=== PATIENT | male | born 1965 | race Caucasian/White ===

== ENCOUNTER 2016-07-06 14:36 | Inpatient (IN) | payer BC ==
[2016-07-06] MEDS ORDERED: SODIUM CHLORIDE 0.9% 1,000 ML IV STA (15:10)
[2016-07-06] MEDS ORDERED: IPRATROPIUM-ALBUTEROL 3 ML NEB INHALATION STA (15:10)
--- NOTE | 2016-07-06 15:25 | ED ---
SOB HPI - General Chief Complaint: Shortness of Breath Stated Complaint: Sent by PCP Abn EKG Time Seen by Provider: 07/06/16 14:56 Source: patient, RN notes reviewed Mode of arrival: wheelchair Limitations: no limitations - History of Present Illness Initial Comments: This is a 50-year-old male with a history of PVCs but no other medical history who does admit that he works out a lot and georgette up to 3 miles a day and has been very healthy he does not smoke or do illegal drugs who sent over from his doctor's office today because he's been feeling fatigued and short of breath for the past several days. She is about 5 days ago he started not feeling well he states he almost passed out several times over last 3 or 4 days he's had fevers chills sweats he did have a global headache 3 days ago which is since gotten better he has some sinus congestion some rhinorrhea which started about 5 days ago. He denies any overt cough or phlegm production. No chest pain no peripheral edema he denies any sore throat or earaches. He denies any other complaints at this time. EKG done in his doctor's office showed bigeminy with apparent baseline changes. He was sent here for further evaluation. MD Complaint: shortness of breath - Related Data Home Medications Medication Instructions Recorded Confirmed Aspirin EC [Ecotrin] 325 mg PO DAILY 07/06/16 07/06/16 Multivitamins, Thera [Multivitamin 1 tab PO DAILY 07/06/16 07/06/16 (formulary)] Allergies Allergy/AdvReac Type Severity Reaction Status Date / Time No Known Allergies Allergy Verified 07/06/16 15:54 Review of Systems ROS Statement: Those systems with pertinent positive or pertinent negative responses have been documented in the HPI. ROS Other: All systems not noted in ROS Statement are negative. Past Medical History Past Medical History: No Reported History History of Any Multi-Drug Resistant Organisms: None Reported Past Surgical History: Hernia Repair, Orthopedic Surgery Past Psychological History: No Psychological Hx Reported Smoking Status: Never smoker Past Alcohol Use History: Occasional Past Drug Use History: None Reported General Exam - General Exam Comments Initial Comments: This is a well-developed well-nourished awake alert oriented x 3 male Limitations: no limitations General appearance: alert, in no apparent distress Head exam: Present: atraumatic, normocephalic, normal inspection Eye exam: Present: normal appearance, PERRL, EOMI. Absent: scleral icterus, conjunctival injection, periorbital swelling ENT exam: Present: mucous membranes moist, TM's normal bilaterally, other ( Boggy nasal mucosa) Neck exam: Present: normal inspection. Absent: tenderness, meningismus, lymphadenopathy Respiratory exam: Present: decreased breath sounds. Absent: respiratory distress, wheezes, rales, rhonchi, stridor Cardiovascular Exam: Present: normal rhythm, bradycardia, normal heart sounds, other (Occasional extrasystole). Absent: systolic murmur, diastolic murmur, rubs, gallop, clicks GI/Abdominal exam: Present: soft, normal bowel sounds. Absent: distended, tenderness, guarding, rebound, rigid Extremities exam: Present: normal inspection, full ROM, normal capillary refill. Absent: tenderness, pedal edema, joint swelling, calf tenderness Back exam: Present: normal inspection Neurological exam: Present: alert, oriented X3, CN II-XII intact Psychiatric exam: Present: normal affect, normal mood Skin exam: Present: warm, dry, intact, normal color. Absent: rash Course Vital Signs 07/06/16 07/06/16 07/06/16 14:47 15:23 15:30 Temperature 97.4 F L Pulse Rate 59 L 58 L Pulse Rate [ 76 Bus Operator ] Respiratory 18 Rate Blood Pressure 145/104 O2 Sat by Pulse 98 Oximetry 07/06/16 07/06/16 07/06/16 15:42 15:51 17:00 Temperature Pulse Rate 60 76 59 L Pulse Rate [ Bus Operator ] Respiratory 18 18 Rate Blood Pressure 161/101 161/101 O2 Sat by Pulse 96 98 Oximetry Medical Decision Making - Medical Decision Making Patient is feeling somewhat better with respect to his breathing however he still having palpitations and intermittent episodes of frequent PVCs. I did discuss case with him and with Dr. Wolf patient be admitted with cardiology consultation. - Lab Data Result diagrams: 07/06/16 15:17 07/06/16 15: Lab Results 07/06/16 07/06/16 07/06/16 Range/Units 15:17 15:17 15:17 WBC 6.1 (3.8-10.6) k/uL RBC 4.97 (4.30-5.90) m/uL Hgb 16.3 (13.0-17.5) gm/dL Hct 46.7 (39.0-53.0) % MCV 93.9 (80.0-100.0) fL MCH 32.7 (25.0-35.0) pg MCHC 34.8 (31.0-37.0) g/dL RDW 13.0 (11.5-15.5) % Plt Count 256 (150-450) k/uL Neutrophils % 52 % Lymphocytes % 34 % Monocytes % 8 % Eosinophils % 3 % Basophils % 1 % Neutrophils # 3.2 (1.3-7.7) k/uL Lymphocytes # 2.1 (1.0-4.8) k/uL Monocytes # 0.5 (0-1.0) k/uL Eosinophils # 0.2 (0-0.7) k/uL Basophils # 0.0 (0-0.2) k/uL PT (9.0-12.0) sec INR (<1.1) APTT (22.0-30.0) sec D-Dimer (<0.60) mg/L FEU Sodium 142 (137-145) mmol/L Potassium 4.2 (3.5-5.1) mmol/L Chloride 106 (98-107) mmol/L Carbon Dioxide 24 (22-30) mmol/L Anion Gap 12 mmol/L BUN 19 (9-20) mg/dL Creatinine 0.92 (0.66-1.25) mg/dL Est GFR (MDRD) Af Amer >60 (>60 ml/min/1.73 sqM) Est GFR (MDRD) Non-Af >60 (>60 ml/min/1.73 sqM) Glucose 102 H (74-99) mg/dL Calcium 9.4 (8.4-10.2) mg/dL Magnesium 2.0 (1.6-2.3) mg/dL Total Bilirubin 0.6 (0.2-1.3) mg/dL AST 21 (17-59) U/L ALT 21 (21-72) U/L Alkaline Phosphatase 73 (38-126) U/L Total Creatine Kinase 34 L (55-170) U/L CK-MB (CK-2) <0.2 (0.0-2.4) ng/mL CK-MB (CK-2) Rel Index Troponin I <0.012 (0.000-0.034) ng/mL NT-Pro-B Natriuret Pep pg/mL Total Protein 7.6 (6.3-8.2) g/dL Albumin 4.6 (3.5-5.0) g/dL TSH 0.824 (0.465-4.680) mIU/L Influenza Type A RNA (Not Detectd) Influenza Type B (PCR) (Not Detectd) 07/06/16 07/06/16 07/06/16 Range/Units 15:17 15:17 15:17 WBC (3.8-10.6) k/uL RBC (4.30-5.90) m/uL Hgb (13.0-17.5) gm/dL Hct (39.0-53.0) % MCV (80.0-100.0) fL MCH (25.0-35.0) pg MCHC (31.0-37.0) g/dL RDW (11.5-15.5) % Plt Count (150-450) k/uL Neutrophils % % Lymphocytes % % Monocytes % % Eosinophils % % Basophils % % Neutrophils # (1.3-7.7) k/uL Lymphocytes # (1.0-4.8) k/uL Monocytes # (0-1.0) k/uL Eosinophils # (0-0.7) k/uL Basophils # (0-0.2) k/uL PT 9.9 (9.0-12.0) sec INR 1.0 (<1.1) APTT 23.8 (22.0-30.0) sec D-Dimer 0.36 (<0.60) mg/L FEU Sodium (137-145) mmol/L Potassium (3.5-5.1) mmol/L Chloride (98-107) mmol/L Carbon Dioxide (22-30) mmol/L Anion Gap mmol/L BUN (9-20) mg/dL Creatinine (0.66-1.25) mg/dL Est GFR (MDRD) Af Amer (>60 ml/min/1.73 sqM) Est GFR (MDRD) Non-Af (>60 ml/min/1.73 sqM) Glucose (74-99) mg/dL Calcium (8.4-10.2) mg/dL Magnesium (1.6-2.3) mg/dL Total Bilirubin (0.2-1.3) mg/dL AST (17-59) U/L ALT (21-72) U/L Alkaline Phosphatase (38-126) U/L Total Creatine Kinase (55-170) U/L CK-MB (CK-2) (0.0-2.4) ng/mL CK-MB (CK-2) Rel Index Troponin I (0.000-0.034) ng/mL NT-Pro-B Natriuret Pep 24 pg/mL Total Protein (6.3-8.2) g/dL Albumin (3.5-5.0) g/dL TSH (0.465-4.680) mIU/L Influenza Type A RNA Not Detected (Not Detectd) Influenza Type B (PCR) Not Detected (Not Detectd) - EKG Data -: EKG Interpreted by [place] EKG shows normal: sinus rhythm (Sinus rhythm with a rate of 59 bradycardia with occasional unifocal PVC. Interval 132 QRS duration 94 QT/QTC of 388/384 and did view the copy of the EKG submitted from the office today which did show episodes of bigeminy this is changed from an EKG dated 12/17/12 which showed a normal sinus rhythm. At this time the baseline does appear to be similar to the 2013 EKG.) - Radiology Data Radiology results: report reviewed, image reviewed Disposition Clinical Impression: PVCs (premature ventricular contractions), Bronchospasm, Palpitations Disposition: ADMITTED IP TO THIS [facility] Condition: Stable Decision Time: 17:45
[2016-07-06 15:40] LABS: Basophils % (A) 1 %; CH 33.5; CHCM 35.8; Eosinophils # (A) 0.2 k/uL (0-0.7); Eosinophils % (A) 3 %; HCT 46.7 % (39.0-53.0); HDW 2.61; HGB 16.3 gm/dL (13.0-17.5); Luc # (Auto) 0.23; Luc % (Auto) 4; Lymphocytes # (A) 2.1 k/uL (1.0-4.8); Lymphocytes % (A) 34 %; MCH 32.7 pg (25.0-35.0); MCHC 34.8 g/dL (31.0-37.0); MCV 93.9 fL (80.0-100.0); Mean Platelet Volume 6.9; Monocytes # (A) 0.5 k/uL (0-1.0); Monocytes % (A) 8 %; Neutrophils # (A) 3.2 k/uL (1.3-7.7); Neutrophils % (A) 52 %; RBC 4.97 m/uL (4.30-5.90); WBC 6.1 k/uL (3.8-10.6); WBC (Perox) 5.89
[2016-07-06 15:54] LABS: ALT 21 U/L (21-72); AST 21 U/L (17-59); Alkaline Phosphatase 73 U/L (38-126); Anion Gap 12 mmol/L; Blood Urea Nitrogen 19 mg/dL (9-20); Calcium 9.4 mg/dL (8.4-10.2); Carbon Dioxide 24 mmol/L (22-30); Chloride 106 mmol/L (98-107); Glucose 102 mg/dL (74-99); Non-African American GFR(MDRD) >60 (>60 ml/min/1.73 sqM); Potassium 4.2 mmol/L (3.5-5.1); Sodium 142 mmol/L (137-145); Total Bilirubin 0.6 mg/dL (0.2-1.3); Total Protein 7.6 g/dL (6.3-8.2)
[2016-07-06 15:57] LABS: Partial Thromboplastin Time 23.8 sec (22.0-30.0); Prothrombin Time 9.9 sec (9.0-12.0)
[2016-07-06 16:02] LABS: Creatine Kinase 34 U/L (55-170)
--- NOTE | 2016-07-06 16:13 | XR ---
EXAMINATION TYPE: XR chest 2V DATE OF EXAM: 07/06/2016 4:06 PM COMPARISON: NONE HISTORY: Shortness of breath TECHNIQUE: Frontal and lateral views of the chest are obtained. FINDINGS: Scattered senescent parenchymal changes noted. Hyperinflation compatible with COPD. No evidence for infiltrate. No evidence for atelectasis. Heart size is stable. Mediastinal structures are stable and grossly unremarkable. No evidence for hilar prominence. Degenerative changes dorsal spine. IMPRESSION: 1. No evidence for acute pulmonary disease.
[2016-07-06 16:14] LABS: Creatine Kinase MB <0.2 ng/mL (0.0-2.4); Troponin I <0.012 ng/mL (0.000-0.034)
[2016-07-06] MEDS ORDERED: NALOXONE 0.4 MG/ML 1 ML VIAL IV PRN (18:27)
[2016-07-06] MEDS ORDERED: SODIUM CHLORIDE 0.9% 1,000 ML IV SCH (18:30)
[2016-07-07] MEDS ORDERED: ASPIRIN 325 MG TAB PO SCH (09:00)
[2016-07-07 09:06] VITALS: TEMP 97.7
--- NOTE | 2016-07-07 11:22 | P.CRDCN ---
History of Present Illness Consult date: 07/07/16 Requesting physician: Jose Luis Wolf Reason for Consult (text): PVC's Chief complaint: Fatigue and exertional shortness of breath History of present illness: This is a 50-year-old gentleman with no prior documented history of hypertension, no diabetes, no hyperlipidemia, nonsmoker, no family history of premature coronary artery disease, drinks 2 glasses of wine per day, he presents to the hospital with symptoms of fatigue and associated exertional shortness of breath. According to the patient, he went to see his primary care doctor because he has not been feeling well for the past 5 days or so. He has noticed some fever and chills with associated headache and sinus congestion, and thought he may require any antibiotic. Patient also states that for the past week or more he has noticed himself to be extremely tired, and states that with exertion he has been getting mildly short of breath. An EKG was performed in his doctor's office which revealed sinus rhythm with PVCs, and patient was then instructed to come to the emergency room for further evaluation. According to the patient, he does feel occasional palpitations in the chest and has had episodes recently where he feels like he may pass out. He drinks one and a half cups of coffee per day, works out regularly. He also states that he had a stress test approximately 4 years ago at which time he was also noted to have PVCs, he states that he reached his target and apparently the PVCs subsided at that time. EKG on admission shows a normal sinus rhythm, sinus bradycardia with occasional PVC. Chest x-ray did not reveal any evidence for acute pulmonary disease. CBC normal. D-dimer normal. Potassium 4.2. Magnesium 2.0. Troponins negative 3. Influenza a and B are negative. TSH normal. Past Medical History Past Medical History: Cancer, Osteoarthritis (OA), Skin Disorder Additional Past Medical History / Comment(s): CONTROLS CHOLESTEROL BY DIET, PVC' S, HAD STRESS TEST IN 2012,SQUAMOUS CELL SKIN CANCER RT ARM 2009, RECENT DENTAL WORK WAS GIVEN ABX PRIOR TO. History of Any Multi-Drug Resistant Organisms: None Reported Past Surgical History: Hernia Repair, Orthopedic Surgery Additional Past Surgical History / Comment(s): UMBILICAL HERNIA REPAIR, COLONOSCOPY, NASAL SX (CARTILAGE DEFORMITY) RT KNEE ARTHROSCOPY, RT KNEE ACL REPAIR, TOTAL RT KNEE REPLACMENT Past Anesthesia/Blood Transfusion Reactions: No Reported Reaction Past Psychological History: No Psychological Hx Reported Additional Psychological History / Comment(s): PT IS INDEPENDANT. LIVES WITH AND 18 YEAR OLD SON.NO PETS. NO OUTSIDE SERVICES, NO MEDICAL EQUIPMENT. 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 FROM [place] AT AGE 74 Mother Family Medical History: Fibromyalgia, Myocardial Infarction ([place]), Thyroid Disorder Additional Family Medical History / Comment(s): FROM [place] AT AGE 64 Medications and Allergies Home Medications Medication Instructions Recorded Confirmed Type Aspirin EC [Ecotrin] 325 mg PO DAILY 07/06/16 07/06/16 History Multivitamins, Thera [Multivitamin 1 tab PO DAILY 07/06/16 07/06/16 History (formulary)] Allergies Allergy/AdvReac Type Severity Reaction Status Date / Time No Known Allergies Allergy Verified 07/06/16 15:54 Physical Exam Vitals: Vital Signs Temp Pulse Pulse Resp BP BP Pulse Ox 07/07/16 08:00 97.7 F 68 16 119/80 96 07/07/16 04:00 96.8 F L 72 18 121/78 96 07/06/16 23:25 62 18 136/85 97 07/06/16 22:50 97.4 F L 65 18 139/77 97 07/06/16 20:07 77 18 117/61 96 07/06/16 19:16 59 L 18 139/83 95 07/06/16 18:34 98.2 F 69 18 111/68 95 Intake and Output 07/06/16 07/07/16 07/07/16 22:59 06:59 14:59 Intake Total 160 Balance 160 Intake: IV 160 Sodium Chloride 0.9% 1, 160 000 ml @ 20 mls/hr IV . Q24H ANAMARIA Rx#:[id number] Other: Voiding Method Toilet # Voids 1 Weight 88.9 kg PHYSICAL EXAMINATION: HEENT: Head is atraumatic, normocephalic. Pupils equal, round. Neck is supple. There is no elevated jugular venous pressure. HEART EXAMINATION: Heart S1, S2 normal. No murmur or gallop heard. CHEST EXAMINATION: Lungs are clear to auscultation and precussion. No chest wall tenderness is noted on palpation or with deep breathing. ABDOMEN: Soft, nontender. Bowel sounds are heard. No organomegaly noted. EXTREMITIES: 2+ peripheral pulses with no evidence of peripheral edema and no calf tenderness noted. NEUROLOGIC patient is awake, alert and oriented -3. . Results 07/06/16 15:17 07/06/16 15:17 Cardiac Enzymes 07/06/16 07/07/16 Range/Units 22:54 05:42 Troponin I <0.012 <0.012 (0.000-0.034) ng/mL Current Medications Generic Name Dose Route Start Last Admin Trade Name Freq PRN Reason Stop Dose Admin Aspirin 325 mg 07/07/16 09:00 07/07/16 09:26 Aspirin PO 325 mg DAILY ANAMARIA Administration Sodium Chloride 1,000 mls @ 20 mls/hr 07/06/16 18:30 07/06/16 21:42 Saline 0.9% IV 20 mls/hr .Q24H ANAMARIA Administration Multivitamins 1 each 07/07/16 12:00 Theragran PO 1200 ANAMARIA Naloxone HCl 0.2 mg 07/06/16 18:27 Narcan IV Q2M PRN Opioid Reversal Intake and Output 07/06/16 07/07/16 07/07/16 22:59 06:59 14:59 Intake Total 160 Balance 160 Intake: IV 160 Sodium Chloride 0.9% 1, 160 000 ml @ 20 mls/hr IV . Q24H ANAMARIA Rx#:[id number] Other: Voiding Method Toilet # Voids 1 Weight 88.9 kg EKG Interpretations (text) EKG shows a sinus bradycardia with occasional PVC. Assessment and Plan Plan: Assessment and plan #1 PVCs, with symptoms of exertional dyspnea and progressive fatigue. Troponins negative 3. TSH normal #2 Cardiac risk factors negative for hypertension, diabetes, no hyperlipidemia, nonsmoker. Plan Obtain an echocardiogram with Doppler study. He will also be scheduled to undergo regular stress test today. Further recommendations to follow. DNP note has been reviewed, I agree with a documented findings and plan of care. Patient was seen and examined.
[2016-07-07] MEDS ORDERED: MULTIVITAMINS, THERA 1 EACH TAB PO SCH (12:00)
--- NOTE | 2016-07-07 12:23 | ECHOF ---
Referral Reason:ARRYTHMIA MEASUREMENTS -------- HEIGHT: 180.3 cm WEIGHT: 88.5 kg BP: 119/80 RVIDd: 3.1 cm (< 3.3) IVSd: 1.0 cm (0.6 - 1.1) LVIDd: 5.0 cm (3.9 - 5.3) LVPWd: 1.0 cm (0.6 - 1.1) IVSs: 1.4 cm LVIDs: 3.5 cm LVPWs: 1.4 cm LA Diam: 3.4 cm (2.7 - 3.8) LAESV Index (A-L): 21.15 ml/m Ao Diam: 3.2 cm (2.0 - 3.7) AV Cusp: 2.0 cm (1.5 - 2.6) LA Diam: 3.4 cm (2.7 - 3.8) MV EXCURSION: 20.174 mm (> 18.000) MV EF SLOPE: 85 mm/s (70 - 150) EPSS: 0.9 cm MV E Rubin: 0.84 m/s MV DecT: 237 ms MV A Rubin: 0.72 m/s MV E/A Ratio: 1.17 RAP: 5.00 mmHg RVSP: 14.63 mmHg FINDINGS -------- Sinus rhythm with extra systolic beats. This was a technically good study. Left ventricular wall thickness is normal. Overall left ventricular systolic function is normal with, an EF between 60 - 65 %. The right ventricle is normal in size and function. Normal LA size by volume 22+/-6 ml/m2. The right atrium is normal in size. The aortic valve is trileaflet, and appears structurally normal. No aortic stenosis or regurgitation. Mild mitral annular calcification present. There is trace mitral regurgitation. Trace tricuspid regurgitation present. There is no evidence of pulmonary hypertension. The right ventricular systolic pressure, as measured by Doppler, is 14.63mmHg. Pulmonic valve appears structurally normal. The aortic root size is normal. There is no pericardial effusion. CONCLUSIONS -------- 1. Sinus rhythm with extra systolic beats. 2. There is no pericardial effusion. 3. This was a technically good study. 4. Overall left ventricular systolic function is normal with, an EF between 60 - 65 %. 5. Mild mitral annular calcification present. 6. There is trace mitral regurgitation. 7. Trace tricuspid regurgitation present. 8. There is no evidence of pulmonary hypertension. 9. The right ventricular systolic pressure, as measured by Doppler, is 14.63mmHg. 10. The aortic root size is normal. MEDICAL STAFF COORDINATOR: Tyrone Casey RDCS
--- NOTE | 2016-07-07 14:05 | EST ---
DATE OF SERVICE: 07/07/2016 AGE: 50Y SEX: M HT: 71" WT: 195 lbs. Protocol Adama: X Other: Stress Stage: 3 Dur. of Exercise: 10:06 *Heart Rate Blood Pressure *Rest: 73 Rest: 131/90 * *Max. Achieved: 153 Maximum BP: 164/72 85% PMHR: 143 100% PMHR: 168 *METS: 12.5 INDICATIONS: Abnormal EKG MEDICATIONS: Aspirin. Baseline EKG revealed sinus mechanism with isolated ventricular ectopy in a bigeminal pattern. Patient walked for standard Adama protocol for 10 minutes, 6 seconds, achieved a maximum heart rate of 153 beats per minute, well above 85% of predicted maximum. Developed fatigue and shortness of breath, but did not have any angina or arrhythmia. He had ventricular ectopy in a bigeminal pattern that disappeared as he exercised and towards the recovery period, the PVCs again reappeared. Patient did not have any symptoms of chest pain. EKG remained unremarkable for any ST segment changes. In the recovery period, the PVCs seem to come back and these were again isolated in fashion, but less frequent. FINAL IMPRESSION: 1. Excellent exercise capacity. 2. A negative stress test by EKG criteria. 3. Ventricular ectopy improved with exercise and reappeared, but less frequent in the recovery period. 4. There is no evidence of ischemia on this stress test.
--- NOTE | 2016-07-07 15:17 | P.HPIM ---
History of Present Illness The 50-year-old male presented a family practice office with complaints of fatigue EKG was done and noted frequent PVCs the changes from baseline ekg. Patient was sent to the emergency room for evaluation with consultation with cardiology Review of Systems Constitutional: Reports fatigue Ears, nose, mouth and throat: Reports nasal congestion Past Medical History Past Medical History: Cancer, Osteoarthritis (OA), Skin Disorder Additional Past Medical History / Comment(s): CONTROLS CHOLESTEROL BY DIET, PVC' S, HAD STRESS TEST IN 2012,SQUAMOUS CELL SKIN CANCER RT ARM 2009, RECENT DENTAL WORK WAS GIVEN ABX PRIOR TO. History of Any Multi-Drug Resistant Organisms: None Reported Past Surgical History: Hernia Repair, Orthopedic Surgery Additional Past Surgical History / Comment(s): UMBILICAL HERNIA REPAIR, COLONOSCOPY, NASAL SX (CARTILAGE DEFORMITY) RT KNEE ARTHROSCOPY, RT KNEE ACL REPAIR, TOTAL RT KNEE REPLACMENT Past Anesthesia/Blood Transfusion Reactions: No Reported Reaction Past Psychological History: No Psychological Hx Reported Additional Psychological History / Comment(s): PT IS INDEPENDANT. LIVES WITH AND 18 YEAR OLD SON.NO PETS. NO OUTSIDE SERVICES, NO MEDICAL EQUIPMENT. 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 FROM [place] AT AGE 74 Mother Family Medical History: Fibromyalgia, Myocardial Infarction ([place]), Thyroid Disorder Additional Family Medical History / Comment(s): FROM [place] AT AGE 64 Medications and Allergies Home Medications Medication Instructions Recorded Confirmed Type Aspirin EC [Ecotrin] 325 mg PO DAILY 07/06/16 07/06/16 History Multivitamins, Thera [Multivitamin 1 tab PO DAILY 07/06/16 07/06/16 History (formulary)] Allergies Allergy/AdvReac Type Severity Reaction Status Date / Time No Known Allergies Allergy Verified 07/06/16 15:54 Physical Exam Vitals: Vital Signs Temp Pulse Pulse Pulse Resp BP BP 07/07/16 08:00 97.7 F 76 68 16 119/80 07/07/16 04:00 96.8 F L 72 18 121/78 07/06/16 23:25 62 18 136/85 07/06/16 22:50 97.4 F L 65 18 139/77 07/06/16 20:07 77 18 117/61 07/06/16 19:16 59 L 18 139/83 07/06/16 18:34 98.2 F 69 18 111/68 Pulse Ox 07/07/16 08:00 96 07/07/16 04:00 96 07/06/16 23:25 97 07/06/16 22:50 97 07/06/16 20:07 96 07/06/16 19:16 95 07/06/16 18:34 95 Intake and Output 07/07/16 07/07/16 07/07/16 06:59 14:59 22:59 Intake Total 160 Balance 160 Intake: IV 160 Sodium Chloride 0.9% 1, 160 000 ml @ 20 mls/hr IV . Q24H ANAMARIA Rx#:[id number] Other: Voiding Method Toilet Toilet # Voids 1 Weight 88.9 kg - Constitutional General appearance: average body habitus - EENT Eyes: PERRLA Ears: bilateral: normal - Neck Neck: normal ROM - Respiratory Respiratory: bilateral: CTA - Cardiovascular Rhythm: regular - Gastrointestinal General gastrointestinal: soft - Neurologic Neurologic: CNII-XII intact - Musculoskeletal Musculoskeletal: gait normal - Psychiatric Psychiatric: A&O x's 3, appropriate affect, intact judgment & insight Results CBC & Chem 7: 07/06/16 15:17 07/06/16 15:17 Chest x-ray: report reviewed Thrombosis Risk Factor Assmnt - Choose All That Apply Any of the Below Risk Factors Present?: Yes Each Factor Represents 1 point: Age 41-60 years, Obesity (BMI >25) Other Risk Factors: Yes Each Risk Factor Represents 2 Points: Malignancy Other congenital or acquired thrombophilia - If yes, enter type in comment: No Thrombosis Risk Factor Assessment Total Risk Factor Score: 4 Thrombosis Risk Factor Assessment Level: Moderate Risk Assessment and Plan Plan: Assessment Premature ventricular contractions bronchospasm palpitation Plan cardiology consultation stress test ordered
[2016-07-07 16:08] VITALS: BP 139/85; PULSE 74; RESP 18
[2016-07-07] MEDS ORDERED: AMOXIC-POT CLAV 875-125MG 1 EACH TAB PO SCH (21:00)
--- NOTE | 2016-07-08 11:49 | P.DS ---
Providers Date of admission: 07/06/16 18:27 Expected date of discharge: 07/07/16 Attending physician: Jose Luis Wolf Primary care physician: Jose Luis Wolf Hospital Course: 50-year-old male presented to family practice physician with complaints of fatigue sinus drainage. EKG showed bigeminal PVCs with change in underlying rhythm. Patient was then evaluated in the emergency room and admitted for cardiology consultation. Patient had a negative stress test discharged home on Augmentin for sinusitis Assessment Frequent premature ventricular contractions Palpitations Sinusitis Plan Follow-up with family physician speech correction assistant Augmentin for sinusitis Patient Condition at Discharge: Stable Plan - Discharge Summary New Discharge Prescriptions: Amoxic-Pot Clav 875-125Mg [Augmentin 875-125] 1 tab PO Q12HR #14 tablet Discharge Medication List Aspirin EC [Ecotrin] 325 mg PO DAILY 07/06/16 [History] Multivitamins, Thera [Multivitamin (formulary)] 1 tab PO DAILY 07/06/16 [History ] Amoxic-Pot Clav 875-125Mg [Augmentin 875-125] 1 tab PO Q12HR #14 tablet [Rx] Follow up Appointment(s)/Referral(s): Jose Luis Wolf MD [Primary Care Provider] - 1-2 days Patient Instructions/Handouts: Palpitations (DC) Discharge Disposition: HOME SELF-CARE
== END 2016-07-07 18:21 | disposition home or self-care (01) | DRG 310 ==
LOC: EC 14:36 → 6SEL 18:27
PROVIDERS: ADMIT Family Medicine; ATTEND Family Medicine
DX: I49.3 Ventricular premature depolarization (principal); J32.9 Chronic sinusitis, unspecified; J98.01 Acute bronchospasm; M19.91 Primary osteoarthritis, unspecified site; Z85.828 Personal history of other malignant neoplasm of skin; Z87.891 Personal history of nicotine dependence; Z96.651 Presence of right artificial knee joint; Z79.82 Long term (current) use of aspirin; Z79.899 Other long term (current) drug therapy; Z82.49 Family history of ischemic heart disease and other diseases of the circulatory system
CPT/HCPCS: 36415; 71020; 80053; 82550; 82553; 83735; 83880; 84443; 84484; 85025; 85379; 85610; 85730; 87040; 87502; 93005; 93017; 93306; 94640; 96360; 96361; 99285

== ENCOUNTER → 2017-06-02 | Outpatient (CLI) | payer BC ==
--- NOTE | 2017-06-08 19:56 | ENG ---
ELECTRONYSTAGMOGRAM REPORT VIDEO-ASSISTED ELECTRONYSTAGMOGRAM: AGE: 51 VNG INDICATIONS: This is a 51-year-old male with dizziness from January through April, sudden onset, improving, currently having intermittent dizzy spells 1 or 2 times a month; will last a whole day. Dizziness can be precipitated by any positional changes. He has right hearing loss along with tinnitus and fullness in the right ear. VNG FINDINGS: Saccades shows intact peak velocities, accuracies and latencies. Gaze with fixation in all the directions of gaze, including centrally with vision denied, shows no nystagmus. Tracking shows smooth tracking, no breakups. Optokinetic nystagmus shows no asymmetries. Static position testing in 6 different positions both with eyes open and then with vision denied showed no nystagmus. Grisel-Hallpike maneuvers are negative bilaterally. Caloric testing shows zero unilateral caloric weakness. IMPRESSION: Normal VNG study. MMRAFAELAL / IJN: [id number] /
== END | disposition home or self-care (01) ==
LOC: NEUROMAIN 07:08
PROVIDERS: ATTEND Family Medicine
DX: R42 Dizziness and giddiness (principal)
CPT/HCPCS: 92537; 92540

== ENCOUNTER 2019-01-15 15:20 | Observation (INO) | payer BC ==
[2019-01-15] MEDS ORDERED: SODIUM CHLORIDE 0.9% 500 ML 500 ML IV STA (15:58)
[2019-01-15] MEDS ORDERED: ASPIRIN 81 MG PO STA (15:58)
[2019-01-15 16:06] LABS: Basophils % (A) 1 %; Eosinophils # (A) 0.1 k/uL (0-0.7); Eosinophils % (A) 1 %; HCT 45.6 % (39.0-53.0); HGB 15.7 gm/dL (13.0-17.5); Lymphocytes # (A) 0.8 k/uL (1.0-4.8); Lymphocytes % (A) 10 %; MCHC 34.5 g/dL (31.0-37.0); MCV 95.9 fL (80.0-100.0); Mean Platelet Volume 6.1; Monocytes # (A) 0.3 k/uL (0-1.0); Monocytes % (A) 4 %; Neutrophils # (A) 6.3 k/uL (1.3-7.7); Neutrophils % (A) 83 %; Platelet Count 229 k/uL (150-450); RBC 4.75 m/uL (4.30-5.90); RDW 12.6 % (11.5-15.5); WBC 7.6 k/uL (3.8-10.6)
[2019-01-15 16:14] LABS: ALT 20 U/L (21-72); AST 25 U/L (17-59); African American GFR (CKD) >90 (>60 ml/min/1.73 sqM); Albumin 4.1 g/dL (3.5-5.0); Alkaline Phosphatase 58 U/L (38-126); Anion Gap 9 mmol/L; Blood Urea Nitrogen 19 mg/dL (9-20); Calcium 8.8 mg/dL (8.4-10.2); Carbon Dioxide 23 mmol/L (22-30); Chloride 107 mmol/L (98-107); Glucose 88 mg/dL (74-99); Magnesium 1.6 mg/dL (1.6-2.3); Non-African American GFR(CKD) >90 (>60 ml/min/1.73 sqM); Potassium 3.6 mmol/L (3.5-5.1); Sodium 139 mmol/L (137-145); Total Bilirubin 0.9 mg/dL (0.2-1.3); Total Protein 6.8 g/dL (6.3-8.2)
[2019-01-15 16:18] LABS: D-Dimer 0.53 mg/L FEU (<0.60); INR 0.9 (<1.2); Partial Thromboplastin Time 25.2 sec (22.0-30.0)
--- NOTE | 2019-01-15 16:29 | XR ---
EXAMINATION TYPE: XR chest 2V DATE OF EXAM: 01/15/2019 COMPARISON: Prior chest x-ray 07/06/2016 HISTORY: Chest pain and shortness of breath TECHNIQUE: Frontal and lateral views of the chest are obtained. FINDINGS: There is no focal air space opacity, pleural effusion, or pneumothorax seen. The cardiac silhouette size is within normal limits. The osseous structures are intact. There are overlying car diac leads. IMPRESSION: No acute cardiopulmonary process.
[2019-01-15] MEDS ORDERED: NITROGLYCERIN SL TABS 0.4 MG TAB SUBLINGUAL PRN (17:15)
--- NOTE | 2019-01-15 17:17 | ED ---
General Adult HPI - General Chief complaint: Chest Pain Stated complaint: SOB, Abnormal EKG Time Seen by Provider: 01/15/19 15:49 Source: patient, RN notes reviewed, old records reviewed Mode of arrival: ambulatory Limitations: no limitations - History of Present Illness Initial comments: 53-year-old male patient past history significant for being a prior smoker quit approximately 30 years ago, presents to the chief complaint of chest pain shortness of breath. Patient reports that the symptoms occurred last night from approximately 8 PM until midnight. Patient force he felt nauseous, was diaphoretic, had substernal chest pain. Patient was 38 had some shortness of breath. Patient notes that he woke up and is currently asymptomatic. Patient was seen by his primary care provider who recommended he presents to the emergency department. Patient did have a father who from a reported heart attack in his mid 60s as well as mother in her 70s. Patient is currently symptom-free at this time. Systemic: Pt denies fatigue, fever/chills, rash. Pt denies weakness, night sweats, weight loss. Neuro: Pt denies headache, visual disturbances, syncope or pre-syncope. HEENT: Pt denies ocular discharge or irritation, otalgia, rhinorrhea, pha ryngitis or notable lymphadenopathy. Cardiopulmonary: Pt denies heart palpitations, dyspnea on exertion. Abdominal/GI: Pt denies abdominal pain, n/v/d. : Pt denies dysuria, burning w/ urination, frequency/urgency. Denies new onset urinary or bowel incontinence. MSK: Pt denies myalgia, loss of strength or function in extremities. Neuro: Pt denies new onset weakness, paresthesias. - Related Data Home Medications Medication Instructions Recorded Confirmed Aspirin EC [Ecotrin] 325 mg PO DAILY 07/06/16 07/06/16 Multivitamins, Thera [Multivitamin 1 tab PO DAILY 07/06/16 07/06/16 (formulary)] Previous Rx's Medication Instructions Recorded Amoxic-Pot Clav 875-125Mg 1 tab PO Q12HR #14 tablet 07/07/16 [Augmentin 875-125] Allergies Allergy/AdvReac Type Severity Reaction Status Date / Time No Known Allergies Allergy Verified 07/06/16 15:54 Review of Systems ROS Statement: Those systems with pertinent positive or pertinent negative responses have been documented in the HPI. ROS Other: All systems not noted in ROS Statement are negative. Past Medical History Past Medical History: Cancer, Osteoarthritis (OA), Skin Disorder Additional Past Medical History / Comment(s): CONTROLS CHOLESTEROL BY DIET, PVC'S, HAD STRESS TEST IN 2012,SQUAMOUS CELL SKIN CANCER RT ARM 2009, RECENT DENTAL WORK WAS GIVEN ABX PRIOR TO. History of Any Multi-Drug Resistant Organisms: None Reported Past Surgical History: Hernia Repair, Orthopedic Surgery Additional Past Surgical History / Comment(s): UMBILICAL HERNIA REPAIR, COLONOSCOPY, NASAL SX (CARTILAGE DEFORMITY) RT KNEE ARTHROSCOPY, RT KNEE ACL REPAIR, TOTAL RT KNEE REPLACMENT Past Anesthesia/Blood Transfusion Reactions: No Reported Reaction Past Psychological History: No Psychological Hx Reported Smoking Status: Former smoker Past Alcohol Use History: Occasional Past Drug Use History: None Reported - Past Family History Father Family Medical History: Diabetes Mellitus, Hyperlipidemia, Hypertension, Myocardial Infarction ([place]) Additional Family Medical History / Comment(s): RHEUMATIC FEVER CHILD, ETOH, DEPRESSION. FROM [place] AT AGE 74 Mother Family Medical History: Fibromyalgia, Myocardial Infarction ([place]), Thyroid Disorder Additional Family Medical History / Comment(s): FROM [place] AT AGE 64 General Exam - General Exam Comments Initial Comments: Constitutional: NAD, AOX3, Pt has pleasant affect. HEENT: NC/AT, trachea midline, neck supple, no lymphadenopathy. Posterior pharynx non erythematous, without exudates. External ears appear normal, without discharge. Mucous membranes moist. Eyes PERRLA, EOM intact. There is no scleral icterus. No pallor noted. Cardiopulmonary: RRR, no murmurs, rubs or gallops, no JVD noted. Lungs CTAB in anterior and posterior cohen. No peripheral edema. Abdominal exam: Abdomen soft and non-distended. Abdomen non-tender to palpation in all 4 quadrants. Bowel sounds active in LLQ. No hepatosplenomegaly. No ecchymosis Neuro: CN II-XII grossly intact. No nuchal rigidity. No raccon eyes, no willson sign, no hemotympanum. No cervical spinal tenderness. MSK: No posterior calf tenderness bilaterally, homans sign negative bilaterally. Posterior tibialis and radial pulse +2 bilaterally. Sensation intact in upper and lower extremities. Full active ROM in upper and lower extremities, 5/5 stregnth. Limitations: no limitations Course Vital Signs 01/15/19 01/15/19 01/15/19 15:25 15:44 16:25 Temperature 97.7 F Pulse Rate 68 68 66 Respiratory 18 18 16 Rate Blood Pressure 118/65 131/77 120/64 O2 Sat by Pulse 97 98 97 Oximetry Medical Decision Making - Medical Decision Making 53-year-old male patient presents to ED chief complaint of chest pressure in both which occurred last night. Patient not having pain today. Patient was sent in by his primary care provider for evaluation. Patient will signs are stable, afebrile. Physical exam did not display acute pathology. Laboratory investigations are non-impressive. Troponin negative. D-dimer negative. EKG nonischemic. Chest x-ray negative. Patient be admitted for steel troponin and cardiology evaluation. Case discussed with Dr. Conte, - Lab Data Result diagrams: 01/15/19 15:55 01/15/19 15:55 Lab Results 01/15/19 01/15/19 01/15/19 Range/Units 15:55 15:55 15:55 WBC 7.6 (3.8-10.6) k/uL RBC 4.75 (4.30-5.90) m/uL Hgb 15.7 (13.0-17.5) gm/dL Hct 45.6 (39.0-53.0) % MCV 95.9 (80.0-100.0) fL MCH 33.0 (25.0-35.0) pg MCHC 34.5 (31.0-37.0) g/dL RDW 12.6 (11.5-15.5) % Plt Count 229 (150-450) k/uL Neutrophils % 83 % Lymphocytes % 10 % Monocytes % 4 % Eosinophils % 1 % Basophils % 1 % Neutrophils # 6.3 (1.3-7.7) k/uL Lymphocytes # 0.8 L (1.0-4.8) k/uL Monocytes # 0.3 (0-1.0) k/uL Eosinophils # 0.1 (0-0.7) k/uL Basophils # 0.0 (0-0.2) k/uL PT 10.0 (9.0-12.0) sec INR 0.9 (<1.2) APTT 25.2 (22.0-30.0) sec D-Dimer 0.53 (<0.60) mg/L FEU Sodium 139 (137-145) mmol/L Potassium 3.6 (3.5-5.1) mmol/L Chloride 107 (98-107) mmol/L Carbon Dioxide 23 (22-30) mmol/L Anion Gap 9 mmol/L BUN 19 (9-20) mg/dL Creatinine 0.95 (0.66-1.25) mg/dL Est GFR (CKD-EPI)AfAm >90 (>60 ml/min/1.73 sqM) Est GFR (CKD-EPI)NonAf >90 (>60 ml/min/1.73 sqM) Glucose 88 (74-99) mg/dL Calcium 8.8 (8.4-10.2) mg/dL Magnesium 1.6 (1.6-2.3) mg/dL Total Bilirubin 0.9 (0.2-1.3) mg/dL AST 25 (17-59) U/L ALT 20 L (21-72) U/L Alkaline Phosphatase 58 (38-126) U/L Troponin I (0.000-0.034) ng/mL Total Protein 6.8 (6.3-8.2) g/dL Albumin 4.1 (3.5-5.0) g/dL 01/15/19 Range/Units 15:55 WBC (3.8-10.6) k/uL RBC (4.30-5.90) m/uL Hgb (13.0-17.5) gm/dL Hct (39.0-53.0) % MCV (80.0-100.0) fL MCH (25.0-35.0) pg MCHC (31.0-37.0) g/dL RDW (11.5-15.5) % Plt Count (150-450) k/uL Neutrophils % % Lymphocytes % % Monocytes % % Eosinophils % % Basophils % % Neutrophils # (1.3-7.7) k/uL Lymphocytes # (1.0-4.8) k/uL Monocytes # (0-1.0) k/uL Eosinophils # (0-0.7) k/uL Basophils # (0-0.2) k/uL PT (9.0-12.0) sec INR (<1.2) APTT (22.0-30.0) sec D-Dimer (<0.60) mg/L FEU Sodium (137-145) mmol/L Potassium (3.5-5.1) mmol/L Chloride (98-107) mmol/L Carbon Dioxide (22-30) mmol/L Anion Gap mmol/L BUN (9-20) mg/dL Creatinine (0.66-1.25) mg/dL Est GFR (CKD-EPI)AfAm (>60 ml/min/1.73 sqM) Est GFR (CKD-EPI)NonAf (>60 ml/min/1.73 sqM) Glucose (74-99) mg/dL Calcium (8.4-10.2) mg/dL Magnesium (1.6-2.3) mg/dL Total Bilirubin (0.2-1.3) mg/dL AST (17-59) U/L ALT (21-72) U/L Alkaline Phosphatase (38-126) U/L Troponin I <0.012 (0.000-0.034) ng/mL Total Protein (6.3-8.2) g/dL Albumin (3.5-5.0) g/dL - EKG Data -: EKG Interpreted by Me (and Dr. Conte ) EKG Comments: Ventricular rate 70,. And for 132, QRS 92, QT/QTC 382/412. RHYTHM, nonspecific ST-T wave abnormality. No concern for acute ischemia at this time. Disposition Clinical Impression: Chest pain Disposition: ADMITTED IP TO THIS [facility] Condition: Serious Is patient prescribed a controlled substance at d/c from ED?: No Referrals: Jose Luis Wolf MD [Primary Care Provider] - 1-2 days
[2019-01-15] MEDS: SODIUM CHLORIDE 0.9% 1,000 ML IV SCH (18:10)
[2019-01-15 18:11] VITALS: RESP 18
[2019-01-16] MEDS: SODIUM CHLORIDE 0.9% 1,000 ML IV SCH (04:13)
[2019-01-16 04:35] LABS: Cholesterol 145 mg/dL (<200); HDL Cholesterol 43 mg/dL (40-60); LDL Cholesterol,Calculated 83 mg/dL (0-99); Triglycerides 95 mg/dL (<150)
[2019-01-16] MEDS ORDERED: ASPIRIN 325 MG TAB PO SCH (09:00)
[2019-01-16 11:49] VITALS: BP 124/78; PULSE 72; TEMP 98.3
--- NOTE | 2019-01-16 12:04 | ECHOF ---
Referral Reason:cp MEASUREMENTS -------- HEIGHT: 182.9 cm WEIGHT: 86.2 kg BP: RVIDd: 3.7 cm (< 3.3) IVSd: 1.0 cm (0.6 - 1.1) LVIDd: 5.1 cm (3.9 - 5.3) LVPWd: 1.1 cm (0.6 - 1.1) IVSs: 1.5 cm LVIDs: 3.4 cm LVPWs: 1.7 cm LAESV Index (A-L): 19.81 ml/m Ao Diam: 3.1 cm (2.0 - 3.7) AV Cusp: 2.4 cm (1.5 - 2.6) LA Diam: 3.1 cm (2.7 - 3.8) MV EXCURSION: 13.536 mm (> 18.000) MV EF SLOPE: 157 mm/s (70 - 150) EPSS: 0.6 cm MV E Rubin: 1.00 m/s MV DecT: 215 ms MV A Rubin: 0.69 m/s MV E/A Ratio: 1.46 RAP: 5.00 mmHg RVSP: 25.47 mmHg TAPSE: 33.32 mm FINDINGS -------- Sinus rhythm. This was a technically good study. The left ventricular size is normal. Left ventricular wall thickness is normal. Overall left vent ricular systolic function is normal with, an EF between 55 - 60 %. The diastolic filling pattern is normal for the age of the patient 10.14. The right ventricle is mild to moderately enlarged. The right ventricular systolic function is norm al. The left atrial size is normal. Normal LA size by volume 22+/-6 ml/m2. The right atrium is mildly enlarged. Interatrial and interventricular septum intact. The aortic valve is trileaflet and appears structurally normal. The mitral valve is normal. The mitral valve leaflets are mildly thickened. Mild mitral regurgita tion is present. The tricuspid valve appears structurally normal. Mild tricuspid regurgitation present. Right vent ricular systolic pressure is normal at < 35 mmHg. There is no pulmonic regurgitation present. The aortic root size is normal. Normal inferior vena cava with normal inspiratory collapse consistent with estimated right atrial pre ssure of 5 mmHg. There is no pericardial effusion. CONCLUSIONS -------- 1. Sinus rhythm. 2. This was a technically good study. 3. The left ventricular size is normal. 4. Left ventricular wall thickness is normal. 5. Overall left ventricular systolic function is normal with, an EF between 55 - 60 %. 6. The diastolic filling pattern is normal for the age of the patient 10.14 7. The right ventricle is mild to moderately enlarged. 8. The right ventricular systolic function is normal. 9. The left atrial size is normal. 10. Normal LA size by volume 22+/-6 ml/m2. 11. The right atrium is mildly enlarged. 12. Interatrial and interventricular septum intact. 13. The aortic valve is trileaflet and appears structurally normal. 14. The mitral valve is normal. 15. The mitral valve leaflets are mildly thickened. 16. Mild mitral regurgitation is present. 17. The tricuspid valve appears structurally normal. 18. Mild tricuspid regurgitation present. 19. Right ventricular systolic pressure is normal at < 35 mmHg. 20. There is no pulmonic regurgitation present. 21. The aortic root size is normal. 22. Normal inferior vena cava with normal inspiratory collapse consistent with estimated right atrial pressure of 5 mmHg. 23. There is no pericardial effusion. SOLE CONDITIONER: Sanaz Peguero, [facility]
--- NOTE | 2019-01-16 13:36 | ECHOS ---
STRESS ECHOCARDIOGRAM DATE OF SERVICE: 01/16/2019 INDICATIONS: Chest pain. MEDICATIONS: Multivitamin, aspirin. BASELINE HEART RATE: 71 BASELINE BLOOD PRESSURE: 112/83 MAXIMUM HEART RATE: 159 MAXIMUM BLOOD PRESSURE: 201/103 85% MPHR: 140 100% MPHR: 165 METS: 12.7 MAXIMUM STAGE REACHED: IV TOTAL EXERCISE TIME: 12 minutes 40 seconds CLINICAL INFORMATION: Baseline EKG revealed normal sinus rhythm without significant ST-T changes. Patient walked on a standard [place]ama protocol for 12 minutes 40 seconds, achieved a maximal heart rate of 159 beats per minute. Developed fatigue and shortness of breath. He did not have any angina or arrhythmia. He had rare isolated PVCs to begin with. As exercise progressed, the PVCs disappeared and came back in the recovery period again. This is a negative stress test with excellent exercise capacity. Baseline echo images revealed normal wall motion and wall thickening of all segments. At peak exercise, there was good augmentation of left ventricular wall motion and wall thickening of all segments suggesting that there is no evidence of stress-induced ischemia on this study. The ventricular ectopy improved with exercise and came back in recovery, isolated in fashion, and I do not believe are significant. FINAL IMPRESSION: 1. Excellent exercise capacity with a negative stress test by EKG criteria. Rare PVCs were noted, which disappeared with exercise and came back in recovery. 2. Normal stress echocardiogram without evidence of ischemia. MMODL / IJN: [id number] /
--- NOTE | 2019-01-16 14:07 | P.CRDCN ---
History of Present Illness History of present illness: HISTORY OF PRESENTING ILLNESS This is a pleasant 53-year-old male past medical history significant for osteoarthritis, depression and history of squamous cell skin cancer. He presented with shortness of breath. He does not follow in the office with a rpg developer. We have been asked to see him in consultation for chest pain. He states he had a normal day on Tuesday then around 8:30 he started feeling a pressure in the chest in the midsternal region associated with nausea, shortness of breath and diaphoresis. His symptoms lasted all night he didn't really sleep that well. Symptoms did improve by the morning. He saw his primary care physician and was sent to the hospital for further cardiac evaluation. He states his chest discomfort was constant through the night with no specific aggravating or alleviating factors. He denies PND or orthopnea. He is quite active and exercises on a bicycle achieving a heart rate of approximately 140 daily for 30 minutes. He denies symptoms of chest pain at peak exercise. DIAGNOSTICS EKG reveals sinus mechanism with nonspecific ST abnormalities. Chest xray negative for an acute cardiopulmonary process. Laboratory reviewed, CBC unremarkable, d-dimer 0.53, sodium 139, potassium 3.6, creatinine 0.95, magnesium 1.6, cardiac enzymes negative 3, LDL 83. He takes no daily cardiac medications include . REVIEW OF SYSTEMS At the time of my exam: CONSTITUTIONAL: Denies fever or chills. CARDIOVASCULAR: Denies chest pain, shortness of breath, orthopnea, PND or palpitations. RESPIRATORY: Denies cough. GASTROINTESTINAL: Denies abdominal pain, diarrhea, constipation, nausea or vomiting. MUSCULOSKELETAL: Denies myalgias. NEUROLOGIC: Denies numbness, tingling or weakness. ENDOCRINE: Denies fatigue, weight change, polydipsia or polyurina. GENITOURINARY: Denies burning, hematuria or urgency with micturation. HEMATOLOGIC: Denies history of anemia or bleeding. PHYSICAL EXAMINATION Blood pressure 129/78 heart rate 71 afebrile and maintaining oxygen saturaiton on room air. CONSTITUTIONAL: No apparent distress. HEENT: Head is normocephalic. Pupils are equal, round. Sclerae anicteric. Mucous membranes of the mouth are moist. No JVD. No carotid bruit. CHEST EXAMINATION: Lungs are clear to auscultation. No chest wall tenderness is noted on palpation or with deep breathing. HEART EXAMINATION: Regular rate and rhythm. S1, S2 heard. No murmurs, gallops or rub. ABDOMEN: Soft, nontender. Positive bowel sounds. EXTREMITIES: 2+ peripheral pulses, no lower extremity edema and no calf tenderness. NEUROLOGIC EXAMINATION: Patient is awake, alert and oriented x3. ASSESSMENT Chest pain, atypical for angina. An acute coronary event has been ruled out. PLAN An acute coronary event has been ruled out. Obtain 2-D echocardiogram and Doppler study to assess cardiac structure and function. Perform stress echocardiogram to assess for stress-induced ischemia. Thank you kindly for this consultation. Nurse Practitioner note has been reviewed, I agree with a documented findings and plan of care. Patient was seen and examined. Past Medical History Past Medical History: Cancer, Osteoarthritis (OA), Skin Disorder Additional Past Medical History / Comment(s): CONTROLS CHOLESTEROL BY DIET, PVC'S, HAD STRESS TEST IN 2012,SQUAMOUS CELL SKIN CANCER RT ARM 2009 History of Any Multi-Drug Resistant Organisms: None Reported Past Surgical History: Hernia Repair, Orthopedic Surgery Additional Past Surgical History / Comment(s): UMBILICAL HERNIA REPAIR, COLONOSCOPY, NASAL SX (CARTILAGE DEFORMITY) RT KNEE ARTHROSCOPY, RT KNEE ACL REPAIR, TOTAL RT KNEE REPLACMENT Past Anesthesia/Blood Transfusion Reactions: No Reported Reaction Past Psychological History: No Psychological Hx Reported Smoking Status: Former smoker Past Alcohol Use History: Occasional Additional Past Alcohol Use History / Comment(s): STARTED SMOKING AT AGE 28(1983), 1 PPD, QUIT 1993 Past Drug Use History: None Reported - Past Family History Father Family Medical History: Diabetes Mellitus, Hyperlipidemia, Hypertension, Myocardial Infarction ([place]) Additional Family Medical History / Comment(s): RHEUMATIC FEVER CHILD, ETOH, DEPRESSION. FROM [place] AT AGE 74 Mother Family Medical History: Fibromyalgia, Myocardial Infarction ([place]), Thyroid Disorder Additional Family Medical History / Comment(s): FROM [place] AT AGE 64 Medications and Allergies Home Medications Medication Instructions Recorded Confirmed Type Aspirin EC [Ecotrin] 325 mg PO DAILY 07/06/16 01/15/19 History Multivitamins, Thera [Multivitamin 1 tab PO DAILY 07/06/16 01/15/19 History (formulary)] Citalopram Hydrobromide [CeleXA] 10 mg PO DAILY 01/15/19 01/15/19 History Allergies Allergy/AdvReac Type Severity Reaction Status Date / Time No Known Allergies Allergy Verified 01/15/19 23:31 Physical Exam Vitals: Vital Signs Temp Pulse Pulse Resp BP BP Pulse Ox 01/16/19 07:50 71 18 01/16/19 07:15 98.5 F 71 18 129/78 97 01/16/19 04:00 98.4 F 63 18 114/67 97 01/15/19 22:25 97.6 F 62 18 127/75 97 01/15/19 19:36 98 F 68 18 124/72 98 01/15/19 18:57 77 18 123/71 98 01/15/19 18:00 77 18 122/69 98 01/15/19 16:25 66 16 120/64 97 01/15/19 15:44 68 18 131/77 98 01/15/19 15:25 97.7 F 68 18 118/65 97 Intake and Output 01/15/19 01/16/19 01/16/19 22:59 06:59 14:59 Other: Voiding Method Toilet Toilet # Voids 1 Weight 86.183 kg Results 01/15/19 15:55 01/15/19 15:55 Cardiac Enzymes 01/15/19 01/15/19 01/15/19 Range/Units 15:55 15:55 21:56 AST 25 (17-59) U/L Troponin I <0.012 <0.012 (0.000-0.034) ng/mL 01/16/19 Range/Units 03:28 AST (17-59) U/L Troponin I <0.012 (0.000-0.034) ng/mL Coagulation 01/15/19 Range/Units 15:55 PT 10.0 (9.0-12.0) sec APTT 25.2 (22.0-30.0) sec Lipids 01/16/19 Range/Units 03:28 Triglycerides 95 (<150) mg/dL Cholesterol 145 (<200) mg/dL HDL Cholesterol 43 (40-60) mg/dL CBC 01/15/19 Range/Units 15:55 WBC 7.6 (3.8-10.6) k/uL RBC 4.75 (4.30-5.90) m/uL Hgb 15.7 (13.0-17.5) gm/dL Hct 45.6 (39.0-53.0) % Plt Count 229 (150-450) k/uL Comprehensive Metabolic Panel 01/15/19 Range/Units 15:55 Sodium 139 (137-145) mmol/L Potassium 3.6 (3.5-5.1) mmol/L Chloride 107 (98-107) mmol/L Carbon Dioxide 23 (22-30) mmol/L BUN 19 (9-20) mg/dL Creatinine 0.95 (0.66-1.25) mg/dL Glucose 88 (74-99) mg/dL Calcium 8.8 (8.4-10.2) mg/dL AST 25 (17-59) U/L ALT 20 L (21-72) U/L Alkaline Phosphatase 58 (38-126) U/L Total Protein 6.8 (6.3-8.2) g/dL Albumin 4.1 (3.5-5.0) g/dL Current Medications Generic Name Dose Route Start Last Admin Trade Name Freq PRN Reason Stop Dose Admin Aspirin 325 mg 01/16/19 09:00 Aspirin PO DAILY ANAMARIA Sodium Chloride 1,000 mls @ 100 mls/hr 01/15/19 17:15 01/16/19 04:13 Saline 0.9% IV Not Given .Q10H ANAMARIA Nitroglycerin 0.4 mg 01/15/19 17:15 Nitrostat SUBLINGUAL Q5M PRN Chest Pain Intake and Output 01/15/19 01/16/19 01/16/19 22:59 06:59 14:59 Other: Voiding Method Toilet Toilet # Voids 1 Weight 86.183 kg 01/15/19 15:55 01/15/19 15:55
--- NOTE | 2019-01-16 14:19 | P.HPIM ---
History of Present Illness 53-year-old male was sent from the family physician office for evaluation of chest pain. 2 days ago patient had episode of shortness of breath with diaphoresis and nausea with chest pain. Was pain free in the office. Patient is a family history of early coronary disease history of osteoarthritis otherwise healthy Review of Systems Constitutional: Reports sweats Respiratory: Reports dyspnea Gastrointestinal: Reports nausea Past Medical History Past Medical History: Cancer, Osteoarthritis (OA), Skin Disorder Additional Past Medical History / Comment(s): CONTROLS CHOLESTEROL BY DIET, PVC'S, HAD STRESS TEST IN 2012,SQUAMOUS CELL SKIN CANCER RT ARM 2009 History of Any Multi-Drug Resistant Organisms: None Reported Past Surgical History: Hernia Repair, Orthopedic Surgery Additional Past Surgical History / Comment(s): UMBILICAL HERNIA REPAIR, COLONOSCOPY, NASAL SX (CARTILAGE DEFORMITY) RT KNEE ARTHROSCOPY, RT KNEE ACL REPAIR, TOTAL RT KNEE REPLACMENT Past Anesthesia/Blood Transfusion Reactions: No Reported Reaction Past Psychological History: No Psychological Hx Reported Smoking Status: Former smoker Past Alcohol Use History: Occasional Additional Past Alcohol Use History / Comment(s): STARTED SMOKING AT AGE 28(1983), 1 PPD, QUIT 1993 Past Drug Use History: None Reported - Past Family History Father Family Medical History: Diabetes Mellitus, Hyperlipidemia, Hypertension, Myocard ial Infarction ([place]) Additional Family Medical History / Comment(s): RHEUMATIC FEVER CHILD, ETOH, DEPRESSION. FROM [place] AT AGE 74 Mother Family Medical History: Fibromyalgia, Myocardial Infarction ([place]), Thyroid Disorder Additional Family Medical History / Comment(s): FROM [place] AT AGE 64 Medications and Allergies Home Medications Medication Instructions Recorded Confirmed Type Aspirin EC [Ecotrin] 325 mg PO DAILY 07/06/16 01/15/19 History Multivitamins, Thera [Multivitamin 1 tab PO DAILY 07/06/16 01/15/19 History (formulary)] Citalopram Hydrobromide [CeleXA] 10 mg PO DAILY 01/15/19 01/15/19 History Allergies Allergy/AdvReac Type Severity Reaction Status Date / Time No Known Allergies Allergy Verified 01/15/19 23:31 Physical Exam Vitals: Vital Signs Temp Pulse Pulse Resp BP BP Pulse Ox 01/16/19 12:00 72 18 01/16/19 11:48 98.3 F 72 18 124/78 97 01/16/19 07:50 71 18 01/16/19 07:15 98.5 F 71 18 129/78 97 01/16/19 04:00 98.4 F 63 18 114/67 97 01/15/19 22:25 97.6 F 62 18 127/75 97 01/15/19 19:36 98 F 68 18 124/72 98 01/15/19 18:57 77 18 123/71 98 01/15/19 18:00 77 18 122/69 98 01/15/19 16:25 66 16 120/64 97 01/15/19 15:44 68 18 131/77 98 01/15/19 15:25 97.7 F 68 18 118/65 97 Intake and Output 01/15/19 01/16/19 01/16/19 22:59 06:59 14:59 Intake Total 240 Balance 240 Intake: Oral 240 Other: Voiding Method Toilet Toilet # Voids 1 Weight 86.183 kg - Constitutional General appearance: no acute distress - EENT Eyes: PERRLA Ears: bilateral: normal - Neck Neck: normal ROM - Respiratory Respiratory: bilateral: CTA - Cardiovascular Rhythm: regular - Gastrointestinal General gastrointestinal: normal bowel sounds, soft - Integumentary Integumentary: normal - Neurologic Neurologic: CNII-XII intact - Musculoskeletal Musculoskeletal: gait normal - Psychiatric Psychiatric: A&O x's 3, appropriate affect, intact judgment & insight Results CBC & Chem 7: 01/15/19 15:55 01/15/19 15:55 Labs: Abnormal Lab Results - Last 24 Hours (Table) 01/15/19 01/15/19 Range/Units 15:55 15:55 Lymphocytes # 0.8 L (1.0-4.8) k/uL ALT 20 L (21-72) U/L Chest x-ray: report reviewed Thrombosis Risk Factor Assmnt - Choose All That Apply Any of the Below Risk Factors Present?: Yes Each Factor Represents 1 point: Obesity (BMI >25) Other Risk Factors: No Other congenital or acquired thrombophilia - If yes, enter type in comment: No Thrombosis Risk Factor Assessment Total Risk Factor Score: 1 Thrombosis Risk Factor Assessment Level: Low Risk Assessment and Plan Plan: Assessment Chest pain troponins negative 3 Family history of coronary disease Osteoarthritis Plan Evaluation by cardiology
--- NOTE | 2019-01-16 14:20 | P.DS ---
Providers Date of admission: 01/15/19 16:51 Expected date of discharge: 01/16/19 Attending physician: Jose Luis Wolf Consults: 01/15/19 17:15 Consult Physician Urgent Consulting Provider: Jocelyn Baird Consult Reason/Comments: chest pain Do you want consulting provider notified?: Yes Primary care physician: Jose Luis Wolf Hospital Course: 53-year-old male was admitted to the emergency room from family physician office. Had episode of chest pain with shortness of breath diaphoresis nausea. Was evaluated by cardiology negative stress echo negative troponins Assessment Chest pain nonischemic troponins negative 3 Family history of early coronary disease Osteoarthritis Plan Follow-up with family physician and cardiology Patient Condition at Discharge: Serious Plan - Discharge Summary Discharge Rx Participant: No New Discharge Prescriptions: No Action Multivitamins, Thera [Multivitamin (formulary)] 1 tab PO DAILY Aspirin EC [Ecotrin] 325 mg PO DAILY Citalopram Hydrobromide [CeleXA] 10 mg PO DAILY Discharge Medication List Aspirin EC [Ecotrin] 325 mg PO DAILY 07/06/16 [History] Multivitamins, Thera [Multivitamin (formulary)] 1 tab PO DAILY 07/06/16 [History] Citalopram Hydrobromide [CeleXA] 10 mg PO DAILY 01/15/19 [History] Follow up Appointment(s)/Referral(s): Jose Luis Wolf MD [Primary Care Provider] - 1-2 days Julia Navarro MD [STAFF PHYSICIAN] - 2 Weeks
[2019-01-17] MEDS ORDERED: ASPIRIN 81 MG PO SCH (09:00)
== END 2019-01-16 14:34 | disposition home or self-care (01) ==
LOC: EC 15:20 → 1SOBS 16:51
PROVIDERS: ADMIT Family Medicine; ATTEND Family Medicine
DX: R07.89 Other chest pain (principal); R06.02 Shortness of breath; R61 Generalized hyperhidrosis; R11.0 Nausea; R94.31 Abnormal electrocardiogram [ECG] [EKG]; R06.00 Dyspnea, unspecified; I49.3 Ventricular premature depolarization; I08.1 Rheumatic disorders of both mitral and tricuspid valves; M19.90 Unspecified osteoarthritis, unspecified site; F32.9 Major depressive disorder, single episode, unspecified; E66.9 Obesity, unspecified; Z68.26 Body mass index [BMI] 26.0-26.9, adult; Z79.82 Long term (current) use of aspirin; Z79.899 Other long term (current) drug therapy; Z87.891 Personal history of nicotine dependence; Z85.828 Personal history of other malignant neoplasm of skin; Z98.890 Other specified postprocedural states; Z96.651 Presence of right artificial knee joint; Z83.3 Family history of diabetes mellitus; Z83.438 Family history of other disorder of lipoprotein metabolism and other lipidemia; Z82.49 Family history of ischemic heart disease and other diseases of the circulatory system; Z83.1 Family history of other infectious and parasitic diseases; Z81.1 Family history of alcohol abuse and dependence; Z82.69 Family history of other diseases of the musculoskeletal system and connective tissue; Z81.8 Family history of other mental and behavioral disorders; Z83.49 Family history of other endocrine, nutritional and metabolic diseases
CPT/HCPCS: 96360; 99285; 36415; 93005; 93306; 93351; 85379; 80061; 80053; 83735; 84484 ×2; 85025; 85610; 85730; 71046; G0378 ×2